=== PATIENT | female | born 1985 | race Caucasian/White ===

== ENCOUNTER → 2024-07-26 | Outpatient (CLI) | payer BC ==
--- NOTE | 2024-07-29 09:23 | MM ---
Reason for Exam: Screening (asymptomatic). Patient History: Menarche at age 11. First Full-Term at age 27. Patient has history of breast feeding. Currently using Hormonal Contraceptives, for 20 years. Last menstrual period: 07/06/2024 Risk Values: 5 year model risk: 0.6%. NCI Lifetime model risk: 11.1%. Tissue Density: The breasts are extremely dense, which lowers the sensitivity of mammography. Analyzed By CAD. Overall Assessment: Negative, BI-RAD 1 Management: Screening Mammogram of both breasts in 1 year. Electronically signed and approved by: Rafael Jewell M.D.
== END | disposition home or self-care (01) ==
LOC: RADMAMWWP 15:52
PROVIDERS: ATTEND Family Medicine
DX: Z12.31 Encounter for screening mammogram for malignant neoplasm of breast (principal); R92.343 Mammographic extreme density, bilateral breasts
CPT/HCPCS: 77063; 77067